=== PATIENT | male | born 1950 | race Caucasian/White ===

== ENCOUNTER 2025-07-26 19:57 | Emergency (ER) | payer MEDICARE ==
[~2025-07-26] VITALS: Ht 170.2 cm; Wt 94.5 kg
--- NOTE | 2025-07-26 22:35 | Physician Documentation ---
History of Present Illness ~ Chief Complaint: Laceration Stated Complaint: FINGER LAC Time Seen by MD: 21:01 Primary Medical Doctor: none HPI RHD 74 y/o male Right thumb avulsion type laceration secondary to mandoline use. He has a proximally 0.5 cm of distal tissue not involving the nail bed. Bleeding controlled. Patient on aspirin only. Full range of motion of all joints Tetanus Within 5 Years: No Medication Reconciliation Allergies: Coded Allergies: sulfamethoxazole (Verified Adverse Reaction, Intermediate, ANOREXIA, 07/26/25) Review of Systems All Other Systems at this time: Reviewed and Negative ROS See HPI Physical Exam Vital Signs: RN Vital Signs have been reviewed: Yes, Temperature: 98.6, Source: Temporal, Heart Rate: 95, Respiratory Rate: 15, BP: 174/76, Pulse Oximetry: 98, Weight: 94.500 General Appearance: alert, WD/WN, mild distress EENT: PERRL/EOMI Neck: non-tender Cardiovascular: regular rate, rhythm Respiratory: lungs clear Back: normal inspection Extremities: normal range of motion Extremities Skin avulsion to lateral thumb .5 cm. NO joint involvement Skin: normal color Neurologic: oriented x4 Lymphatic: normal inspection Psychiatric: normal mood/affect Procedures Laceration/Wound Repair Laceration : Location: Right thumb Length (cm): 0.5 Anesthesia: none Prep: scrubbed Repaired: skin Wound Repaired With: Dermabond Splint Applied?: Yes Type of Splint Applied: Finger splint applied by myself Tolerated Procedure Well?: yes, no complications Procedure Note Wound prepped and draped. Topical Dermabond applied. Splint applied and then tube gauze dressing applied by myself. Tolerated procedure well. Safely discharge. Progress Results/Orders Results/Orders Vital Signs 07/26/25 20:35 Temp 98.6 Pulse 95 Resp 15 B/P (MAP) 174/76 Pulse Ox 98 Medical Decision Making Additional information obtaine: N/A Findings Avulsion to the right thumb from a mandoline. Requires wound management. Wound cleansed and closed with Dermabond. Sterile dressing and splint applied. Aftercare instructions provided for patient. Safely discharge. See procedure note. Differential Dx:Considerations: Include: Abrasion, Avulsion, Contusion, Laceration, Fracture, Hematoma, Neurovascular injury, Retained foreign body, Other Departure Disposition: HOME / SELF CARE / HOMELESS Impression: Primary Impression: Laceration Condition: Stable Discharge Instructions: Laceration Care (Skin Glue) Additional Instructions: Please keep wound clean and dry. In three days check for signs of infection then allow wound to heal by secondary intention. Return to the emergency department for signs of infection. Have a ursula Griffin. Referrals: NO PRIMARY CARE PROVIDER (PCP) Education Educated: Patient Educated regarding: diagnosis, treatment, prognosis Signature Scribe Signature: . Attestation: . TERA SOOD [facility] Jul 26, 2025 22:35
[2025-07-26 22:49] VITALS: BP 124/80; PULSE 80; RESP 18; TEMP 98.2; O2SAT 99
== END 2025-07-26 22:53 | disposition home or self-care (01) ==
LOC: ER 19:57
DX: S61.011A Laceration without foreign body of right thumb without damage to nail, initial encounter (principal); Z88.2 Allergy status to sulfonamides; W27.4XXA Contact with kitchen utensil, initial encounter; Y92.89 Other specified places as the place of occurrence of the external cause; Y93.89 Activity, other specified; Y99.8 Other external cause status
CPT/HCPCS: 12001; 99282; Z7610